=== PATIENT | female | born 1995 ===

== ENCOUNTER 2017-10-16 20:24 | Emergency (ER) | payer OTHER ==
[2017-10-16 20:25] VITALS: BMI 20.1
[2017-10-16 21:30] VITALS: BP 115/73; PULSE 78; RESP 16; TEMP 99.2; O2SAT 98
[2017-10-16] MEDS ORDERED: Oxycodone/Acetaminophen 5/325 mg Tab PO STA (23:33)
[2017-10-16] MEDS ORDERED: Oxycodone/Acetaminophen 5/325 mg Tab ONE (23:47)
--- NOTE | 2017-10-16 23:49 | ED PDOC ---
HPI: General Adult Time Seen by Provider: 10/16/17 22:20 Chief Complaint (Nursing): Dental Pain Chief Complaint (Provider): Right lymph node swelling History Per: Patient History/Exam Limitations: no limitations Onset/Duration Of Symptoms: Days Have you had recent travel within the past 21 days to any of the following countries: [place], [place], [place] or [place]?: No Additional Complaint(s): Pt denies ear pain or dental pain. No fever/chills. No similar in the past. Past Medical History Reviewed: Historical Data, Nursing Documentation, Vital Signs Vital Signs: Last Vital Signs Temp 99.2 F 10/16/17 21:27 Pulse 78 10/16/17 21:27 Resp 16 10/16/17 21:27 BP 115/73 10/16/17 21:27 Pulse Ox 98 10/16/17 21:27 - Medical History PMH: No Chronic Diseases - Surgical History Surgical History: No Surg Hx - Family History Family History: States: Unknown Family Hx - Living Arrangements Living Arrangements: With Family - Social History Current smoker - smoking cessation education provided: No - Immunization History Hx Tetanus Toxoid Vaccination: No Hx Influenza Vaccination: No Hx Pneumococcal Vaccination: No - Home Medications Home Medications: Ambulatory Orders Medication Instructions Recorded Amoxicillin/Clavulanate [Augmentin 1 tab PO BID #20 tab 10/16/17 875 MG-125 MG] oxyCODONE/Acetaminophen [Percocet 1 ea PO Q6H PRN #10 tab 10/16/17 5/325 mg Tab] - Allergies Allergies/Adverse Reactions: Allergies Allergy/AdvReac Type Severity Reaction Status Date / Time No Known Allergies Allergy Verified 10/16/17 21:27 Review of Systems ROS Statement: Except As Marked, All Systems Reviewed And Found Negative Constitutional: Negative for: Fever, Chills ENT: Positive for: Other Cardiovascular: Negative for: Chest Pain, Palpitations Respiratory: Negative for: Cough, Shortness of Breath Gastrointestinal: Negative for: Nausea, Vomiting, Abdominal Pain Physical Exam - Reviewed Nursing Documentation Reviewed: Yes Vital Signs Reviewed: Yes - Physical Exam Appears: Positive for: Well, Non-toxic, No Acute Distress Head Exam: Positive for: ATRAUMATIC, NORMAL INSPECTION, NORMOCEPHALIC Skin: Positive for: Normal Color, Warm, DRY Eye Exam: Positive for: EOMI, Normal appearance, PERRL ENT: Positive for: Normal ENT Inspection, Other ((+) edema, lymph node right cervical, tender to palpation) Neck: Positive for: Normal, Painless ROM Cardiovascular/Chest: Positive for: Regular Rate, Rhythm Respiratory: Positive for: Normal Breath Sounds. Negative for: Accessory Muscle Use, Respiratory Distress Back: Positive for: Normal Inspection Extremity: Positive for: Normal ROM Neurologic/Psych: Positive for: Alert, Oriented - ECG O2 Sat by Pulse Oximetry: 98 Medical Decision Making Medical Decision Making: Discussed the localized inflammation may be due to wisdom teeth beging to come in. Pt dori appointment with dentist 10/23/17. Discussed that if symptoms/ swelling of lymph nodes do not resolved f/u for labs and biopsy. Disposition - Clinical Impression Clinical Impression: LAD (lymphadenopathy) of right cervical region - Patient ED Disposition Is Patient to be Admitted: No Counseled Patient/Family Regarding: Diagnosis, Need For Followup, Rx Given - Disposition Disposition: Routine/Home Disposition Time: 23:47 Condition: GOOD Prescriptions: Amoxicillin/Clavulanate [Augmentin 875 MG-125 MG] 1 tab PO BID #20 tab oxyCODONE/Acetaminophen [Percocet 5/325 mg Tab] 1 ea PO Q6H PRN #10 tab PRN Reason: Pain, Severe (8-10) Instructions: Swollen Neck Nodes in Children
== END 2017-10-16 23:54 | disposition home or self-care (01) ==
LOC: H.ER 20:24
DX: R59.9 Enlarged lymph nodes, unspecified (principal)